=== PATIENT | male | born 2000 | race Caucasian/White ===

== ENCOUNTER 2021-05-10 16:48 | Emergency (ER) | payer OTHER ==
[~2021-05-10] VITALS: Ht 195.6 cm; Wt 104.5 kg
[2021-05-10 17:25] VITALS: TEMP 98.2
[2021-05-10] MEDS ORDERED: CEPHALEXIN500 M1 PO (18:51)
[2021-05-10 19:00] VITALS: BP 112/70; PULSE 76
== END 2021-05-10 19:00 | disposition home or self-care (01) ==
LOC: COL.ER 16:48
DX: M25.512 Pain in left shoulder (principal); M71.162 Other infective bursitis, left knee; V80.010A Animal-rider injured by fall from or being thrown from horse in noncollision accident, initial encounter